=== PATIENT | female | born 1990 | race Caucasian/White ===

== ENCOUNTER 2020-02-26 14:05 | Emergency (ER) | payer MEDICAID ==
[~2020-02-26] VITALS: Ht 157.5 cm; Wt 111.1 kg
[2020-02-26 14:05] VITALS: BP_SYST 133
--- NOTE | 2020-02-26 16:00 | NUR ---
Patient to ER bed 8 to gown for evaluation. Side rails up.
--- NOTE | 2020-02-26 16:05 | NUR ---
Pt came to ER for cough, will be Covid tested and sent home. Pt to be educated on Covid criteria and medication. Resting in [facility]
--- NOTE | 2020-02-26 16:15 | NUR ---
MIRZA Gray at bedside examining patient.
[2020-02-26 17:00] VITALS: BP_SYST 133
--- NOTE | 2020-02-26 17:00 | NUR ---
Patient given written and verbal discharge instructions and verbalizes understanding. ER MD discussed with patient the results and treatment provided. Patient in stable condition. ID arm band removed. Rx of Naproxen given. Patient educated on pain management and to follow up with PMD. Pain Scale 0. Opportunity for questions provided and answered. Medication side effect fact sheet provided.
== END 2020-02-26 17:00 | disposition home or self-care (01) ==
LOC: SED 14:05 → EEVIPCON 14:05 → SED 17:00
DX: Z20.828 Contact with and (suspected) exposure to other viral communicable diseases (principal); J45.909 Unspecified asthma, uncomplicated
CPT/HCPCS: 99283; U0003; C9803-CS

== ENCOUNTER 2020-03-25 22:23 | Emergency (ER) | payer MEDICAID, SELFPAY ==
[~2020-03-25] VITALS: Ht 157.5 cm; Wt 113.4 kg
[2020-03-25 22:30] VITALS: BP_SYST 162
--- NOTE | 2020-03-25 22:30 | NUR ---
PT TO REMAIN IN TENT D/T POSITIVE COVID TEST. NO ISOLATION ROOMS AVAILABLE.
[2020-03-26 00:33] LABS: HEMATOCRIT 43.7 % (36-48); HEMOGLOBIN 14.6 g/dL (12.0-16.0); MEAN CORPUSCULAR HEMOGLOBIN 30 pg (27-31); MEAN CORPUSCULAR HGB CONC 34 % (32-36); MEAN CORPUSCULAR VOLUME 90 fL (79.0-98.0); PLATELET COUNT (AUTO) 243 K/uL (130-430); RED BLOOD CELL COUNT(AUTO) 4.87 MIL/uL (4.2-6.2); RED CELL DISTRIBUTION WIDTH 14.2 % (9.0-15.0); WHITE BLOOD COUNT (AUTO) 11.2 K/uL (4.8-10.8)
[2020-03-26 00:47] LABS: CALCIUM 8.9 mg/dL (8.4-11.0); CREATININE 0.89 mg/dL (0.55-1.30); POTASSIUM 3.9 mmol/L (3.5-5.1)
[2020-03-26 00:56] LABS: PROTHROMBIN TIME 9.9 SECS (9.5-12.5)
[2020-03-26 01:01] LABS: ALBUMIN 3.4 g/dL (3.4-4.8); C-REACTIVE PROTEIN QUANT 1.7 mg/dL (0-0.5); TOTAL BILIRUBIN 0.7 mg/dL (0.0-1.0)
[2020-03-26 01:03] LABS: ATYPICAL LYMPHOCYTES % 0 % (0-0); BAND % (MANUAL) 0 % (0-6); BASOPHILS % (MANUAL) 0 % (0-2); EOSINOPHILS % (MANUAL) 1 % (0-7); LYMPHOCYTES % (MANUAL) 24 % (20-46); MONOCYTES % (MANUAL) 9 % (0-11)
--- NOTE | 2020-03-26 01:56 | NUR ---
Patient ambulatory to bed 7 for evaluation
--- NOTE | 2020-03-26 02:35 | NUR ---
ER at bedside examining patient.
--- NOTE | 2020-03-26 02:37 | NUR ---
Pt presents to the ER c/o numbness of her left upper extremity and hand as well as of lateral side of her left face x today. Pt also c/o intermittent SOB, cough, lightheadedness, wheezing, diarrhea, anxiety, loss of sense of taste. Recently dx COVID-19 disease. Denies fever.
--- NOTE | 2020-03-26 02:54 | NUR ---
COVID SWAB SENT TO LAB
[2020-03-26 03:08] VITALS: BP_SYST 162
--- NOTE | 2020-03-26 03:08 | NUR ---
Patient given written and verbal discharge instructions and verbalizes understanding. ER MD discussed with patient the results and treatment provided. Patient in stable condition. ID arm band removed. Opportunity for questions provided and answered.
--- NOTE | 2020-03-31 12:31 | NUR ---
Patient was called by [facility] and notified her CoVID-19 "Detected" result and instructed to follow the provided Home Isolation Instructions. Patient verbalizes understanding.
== END 2020-03-26 03:08 | disposition home or self-care (01) ==
LOC: SED 22:23
DX: U07.1 COVID-19 (principal); R20.2 Paresthesia of skin; J45.909 Unspecified asthma, uncomplicated
CPT/HCPCS: 36415; 71045; 80053; 82550; 82728; 83605; 83615; 83880; 84484; 84702; 85007; 85027; 85384; 85610; 85730; 86140; 87040; 93005; 99285; C9803; U0003

== ENCOUNTER 2021-01-06 19:42 | Emergency (ER) | payer MEDICAID, SELFPAY ==
[~2021-01-06] VITALS: Ht 157.5 cm; Wt 112.9 kg
[2021-01-06 19:47] VITALS: BP_SYST 158
[2021-01-06 22:05] VITALS: BP_SYST 148
== END 2021-01-06 22:05 | disposition home or self-care (01) ==
LOC: SED 19:42
DX: M79.672 Pain in left foot (principal); J45.909 Unspecified asthma, uncomplicated; E78.5 Hyperlipidemia, unspecified
CPT/HCPCS: 99283

== ENCOUNTER 2021-03-06 01:43 | Emergency (ER) | payer MEDICAID ==
[~2021-03-06] VITALS: Ht 170.2 cm; Wt 112.0 kg
[2021-03-06 01:56] VITALS: BP_SYST 14
--- NOTE | 2021-03-06 01:56 | NUR ---
Patient triaged and placed in waiting room. VSS and patient appears in no acute distress at this time. Accompanied by FAM MEMBER, awaiting available bed, and MD notified of need for MSE.
[2021-03-06 02:47] LABS: BASOPHILS # (AUTO) 0.1 K/uL (0.0-0.2); BASOPHILS % (AUTO) 0.8 % (0.0-2.0); EOSINOPHILS # (AUTO) 0.2 K/uL (0.0-0.4); EOSINOPHILS % (AUTO) 1.9 % (0.0-4.0); HEMATOCRIT 40.7 % (36-48); HEMOGLOBIN 13.7 g/dL (12.0-16.0); LYMPHOCYTES % (AUTO) 28.9 % (20.5-51.5); MEAN CORPUSCULAR HEMOGLOBIN 30 pg (27-31); MEAN CORPUSCULAR HGB CONC 34 % (32-36); MEAN CORPUSCULAR VOLUME 89 fL (79.0-98.0); MONOCYTES # (AUTO) 0.7 K/uL (0.0-1.0); MONOCYTES % (AUTO) 7.1 % (1.7-9.3); NEUTROPHILS # (AUTO) 6.4 K/uL (1.8-7.7); NEUTROPHILS % (AUTO) 61.3 % (40.0-70.0); PLATELET COUNT (AUTO) 282 K/uL (130-430); RED CELL DISTRIBUTION WIDTH 12.9 % (9.0-15.0); WHITE BLOOD COUNT (AUTO) 10.5 K/uL (4.8-10.8)
[2021-03-06 03:21] LABS: ANION GAP 13 (5-15); CALCIUM 8.7 mg/dL (8.4-11.0); CHLORIDE 105 mmol/L (98-107); CREATININE 0.74 mg/dL (0.55-1.30); GLUCOSE 110 mg/dL (70-99); POTASSIUM 3.4 mmol/L (3.5-5.1); SODIUM SERUM 142 mmol/L (136-145); UREA NITROGEN, BLOOD 17 mg/dL (8-21)
[2021-03-06 03:23] LABS: GFR AFRICAN AMERICAN 119 mL/min (>90)
[2021-03-06 03:30] LABS: ALANINE AMINOTRANSFERASE 27 U/L (12-78); ALBUMIN 3.6 g/dL (3.4-4.8); ASPARTATE AMINOTRANSFERASE 10 U/L (10-37); TOTAL BILIRUBIN 0.5 mg/dL (0.0-1.0)
--- NOTE | 2021-03-06 03:50 | NUR ---
Placed in room 8 . Placed on cardiac nurse, blood pressure machine and pulse oximeter. To gown for exam. Side rails up. Report given to Janak LITTLE.
--- NOTE | 2021-03-06 04:00 | NUR ---
Pt walked into ED from home c/o chest pain x1 hour, +dizziness and fatigue x1 week. Denies abd pain, N/V, ROSAS.
--- NOTE | 2021-03-06 04:22 | NUR ---
Dr. Block at bedside for MSE.
[2021-03-06] MEDS ORDERED: POTASSIUM CHLORIDE 20 MEQ TAB.PRT.SR PO ONE (04:30)
[2021-03-06] MEDS ORDERED: POTASSIUM CHLORIDE 20 MEQ TAB.PRT.SR ONE (04:38)
--- NOTE | 2021-03-06 05:10 | NUR ---
xray at bedside
--- NOTE | 2021-03-06 05:48 | NUR ---
Dr. Block at bedside updating patient.
[2021-03-06] MEDS ORDERED: MECLIZINE HCL 25 MG TABLET (ANITVERT) PO ONE (06:00)
[2021-03-06] MEDS ORDERED: MECLIZINE HCL 25 MG TABLET (ANITVERT) ONE (06:05)
[2021-03-06] MEDS ORDERED: ACET-2439 PO (06:06)
[2021-03-06] MEDS ORDERED: MECL-108 PO (06:06)
[2021-03-06] MEDS ORDERED: ACET-2634 PO ×2 (06:07)
[2021-03-06 06:15] VITALS: BP_SYST 124
--- NOTE | 2021-03-06 06:15 | NUR ---
Patient given written and verbal discharge instructions and verbalizes understanding. ER MD discussed with patient the results and treatment provided. Patient in stable condition. ID arm band removed. Rx of TYLENOL, MECLIZINE given. Patient educated on pain management and to follow up with PMD. Pain Scale 0/10. Opportunity for questions provided and answered. Medication side effect fact sheet provided.
== END 2021-03-06 06:15 | disposition home or self-care (01) ==
LOC: SED 01:43
DX: H81.399 Other peripheral vertigo, unspecified ear (principal); R07.89 Other chest pain; J45.909 Unspecified asthma, uncomplicated; Z79.899 Other long term (current) drug therapy
CPT/HCPCS: 36415; 71045; 80053; 84484; 85025; 93005; 99285; J8597

== ENCOUNTER 2022-11-16 01:50 | Emergency (ER) | payer OTHER, MEDICAID ==
[~2022-11-16] VITALS: Ht 157.5 cm; Wt 113.4 kg
[~2022-11-16 01:50] MED LIST: ACET-2439 PO; MECL-108 PO
[2022-11-16 02:01] VITALS: BP_SYST 147
--- NOTE | 2022-11-16 02:05 | NUR ---
PT FROM HOME WITH C/O OF "NOT FEELING WELL." PT STATES SHE TESTED POSITIVE FOR COVID ON MONDAY. PT STATES SHE FEELS SOB. PT WITH HX OF ASTHMA. DBP OF 99, MADE AWARE AND REQUESTED FOR MSE.
--- NOTE | 2022-11-16 02:27 | NUR ---
DR. VALENCIA WITH PATIENT IN TRIAGE FOR MSE.
[2022-11-16] MEDS ORDERED: BENZ100C92 PO (02:43)
[2022-11-16] MEDS ORDERED: PRED20TA PO (02:43)
[2022-11-16] MEDS ORDERED: ALBMDI INH (02:43)
[2022-11-16 03:01] VITALS: BP_SYST 147
--- NOTE | 2022-11-16 03:01 | NUR ---
Patient given written and verbal discharge instructions and verbalizes understanding. ER DR. VALENCIA discussed with patient the results and treatment provided. Patient in stable condition. ID arm band removed. Rx of prednisone, albuterol and benzonatate given. Patient educated on pain management and to follow up with PMD. Pain Scale 0. Opportunity for questions provided and answered. Medication side effect fact sheet provided.
== END 2022-11-16 03:01 | disposition home or self-care (01) ==
LOC: SED 01:50
DX: U07.1 COVID-19 (principal); J06.9 Acute upper respiratory infection, unspecified; R05.9 Cough, unspecified; R09.81 Nasal congestion; R06.02 Shortness of breath; E78.5 Hyperlipidemia, unspecified; J45.909 Unspecified asthma, uncomplicated; Z79.899 Other long term (current) drug therapy
CPT/HCPCS: 36415; 99283